=== PATIENT | male | born 1960 | race Caucasian/White ===

== ENCOUNTER 2018-10-09 10:51 | Emergency (ER) | payer BC ==
[2018-10-09 11:04] VITALS: BP 121/61
--- NOTE | 2018-10-09 12:08 | UC ---
General HPI - HPI Summary HPI Summary: Patient presents to urgent care with 3 days of intermittent feeling dizzy. Patient states he mostly notices it when he stands up or changes position quickly or turns his head quickly. STates mostly resolved. Patient states his left ear feels full and has been "popping." Patient denies sinus congestion. No sore throat. Patient has had 2 episodes of nausea that he feels were related to the dizziness. Patient has also had cold sweats followed by diarrhea after the nausea. No emesis. No fevers or chills. No CP, no SOB. No rash. Pt moved daughter out of dorm this weekend which was "a lot of work" No recent trauma. No difficulty with balance. Pt unsure if closing eyes changes sx. 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 Patient concerned that this is what he has as well. Patient did not go to work today. Patient has been able to eat and drink. She denies alcohol use. No excess caffeine. Patient has had similar symptoms in the past. Patient also with a history of recurrent ear infections for which she 's had tympanostomy tubes. Patient is followed by Dr. Alejandro Kennedy related to his ear infections and some hearing deficit. no headache. no vision changes from baseline. Medications reviewed this visit. - History of Current Complaint Chief Complaint: UCDizziness Stated Complaint: DIZZINESS,EAR, VOMITTING Time Seen by Provider: 10/09/18 11:01 Hx Obtained From: Patient Onset/Duration: Sudden Onset, Lasting Minutes Timing: Intermittent Episodes Lasting: - 15-30min Onset Severity: Mild Current Severity: None Pain Intensity: 0 - Allergy/Home Medications Allergies/Adverse Reactions: Allergies Allergy/AdvReac Type Severity Reaction Status Date / Time NKDA Allergy See Comment Uncoded 10/09/18 11:04 PMH/Surg Hx/FS Hx/Imm Hx Previously Healthy: Yes - Surgical History Surgical History: Yes Surgery Procedure, Year, and Place: 02/2007 [facility] [place]- hernia repair - Family History Known Family History: Positive: Other - son with brain tumor, Non-Contributory - Social History Occupation: Employed Full-time Lives: With Family Alcohol Use: Occasionally Substance Use Type: None Smoking Status (MU): Former Smoker Type: Cigarettes Have You Smoked in the Last Year: No Review of Systems All Other Systems Reviewed And Are Negative: Yes Constitutional: Positive: Fatigue ENT: Positive: Ear Ache - left ear full, popping slight ringing Respiratory: Negative: Shortness Of Breath, Cough Cardiovascular: Negative: Chest Pain Gastrointestinal: Positive: Diarrhea, Nausea Neurological: Negative: Headache, Weakness, Numbness Psychological: Positive: Negative Physical Exam - Summary Physical Exam Summary: Vital Signs Reviewed: Yes A+Ox3, no distress, no difficulty with ambulation to stretcher Eyes: Conjunctiva Clear, SERGE. EOM intact and full, 3 beat extinguishing nystagmus to left with symptoms, no photophobia ENT: Hearing grossly normal TM x 2 clear, left ear + fluid, poor visualized landmarks, no bulge, no erythema mmoist, uvula midline, no exudate, no erythema Neck: Positive: Supple Respiratory: Positive: No respiratory distress, No accessory muscle use + CTA throughout no w/r Cardiovascular: RRR nl s1, s2 no m/r CBT <2 sec, no bruits, abd soft + BS nt/nd no guarding, no distension Musculoskeletal Exam: MATIAS x 4 without difficulty Strength Intact, ROM Intact Neurological: Positive: Alert, + sensation throughout Psychological: Positive: Normal Response To Family Skin: Positive: no rash, no ecchymosis Triage Information Reviewed: Yes Vital Signs: Initial Vital Signs Temp 98.5 F 10/09/18 10:58 Pulse 62 10/09/18 10:58 Resp 16 10/09/18 10:58 BP 121/61 10/09/18 10:58 Pulse Ox 99 10/09/18 10:58 Diagnostics - EKG Cardiac Rate: NL Cardiac Rhythm: Sinus: Normal Ectopy: None ST Segment: Normal Course/Dx - Course Course Of Treatment: Patient presents with episodes of dizziness, and nausea so 3 days. Patient states she's had is in the past. Patient also states his left ear is plugged and feels like he needs to pop. Patient without any chest pain or shortness of breath. Patient with history of similar similar. Patient exposed to somebody with viral head cold. On exam VSS Pt with symptomatic nystagmus at , fluid in left ear recommend flonase abx hydrate consider decongestant f/u with PCP or ENT strict return precaution work note pt and spouse comfortable and in agreement with plan - Diagnoses Provider Diagnosis: Left otitis media, Vertigo Discharge - Sign-Out/Discharge Documenting (check all that apply): Patient Departure All imaging exams completed and their final reports reviewed: No Studies - Discharge Plan Condition: Stable Disposition: HOME Prescriptions: Amoxicillin PO (*) [Amoxicillin 500 MG CAP*] 500 mg PO Q12H #20 cap Fluticasone NASAL SPRAY 50MCG* [Flonase NASAL SPRAY 50MCG*] 2 spray BOTH NARES DAILY #1 btl Meclizine HCl [Motion Sickness Relief] 25 mg PO Q6HR PRN #10 tablet PRN Reason: Dizziness Patient Education Materials: Vertigo (ED), Ear Infection (ED) Forms: *Gen. Provider Communication, *Work Release Referrals: Juliano Fox MD [Medical Doctor] - Juliano Plaza MD [Primary Care Provider] - Additional Instructions: - stay well hydrated. Drink plenty of non-alcoholic, non-caffinated beverages - Take antibiotics as prescribed until gone - use nasal spray daily as prescribed - Consider taking a decongestant (Sudafed, Olivia-D, Zyrtec-D, Claritin-D) if you continue to have dizziness - SLOWLY change positions - lying to sitting, sitting to standing and turning head - - These infections are spread by secretions - do NOT share eating or drinking utensils - clean items you share with other people such as cell phones, computer mouse, TV remote, computer tablets,etc. Once you have been antibiotics for 2 days, change your toothbrush and your pillowcase. - get plenty of restful sleep - humidify the air in the room where you sleep - boil water, run a hot steam shower, vaporizer, cups of water by heat register - Contact your doctor to schedule a follow-up appointment this week. If you develop fevers, increased symptoms, chest pain, shortness of breath or you have ANY Other questions or concerns it is recommended you go to the emergency department for futher evaluation and treatment - Billing Disposition and Condition Condition: STABLE Disposition: Home
== END 2018-10-09 11:50 | disposition home or self-care (01) ==
LOC: UCEAST 10:51
DX: H66.92 Otitis media, unspecified, left ear (principal); R42 Dizziness and giddiness; R53.83 Other fatigue; R19.7 Diarrhea, unspecified; R11.0 Nausea; Z87.891 Personal history of nicotine dependence
CPT/HCPCS: 99212; G0463